=== PATIENT | male | born 1975 | race Caucasian/White ===

== ENCOUNTER 2023-09-03 19:05 | Emergency (ER) | payer BC ==
[2023-09-03] MEDS: Lidocaine 1% 5 ML VIAL INJECT ONE (19:50)
== END 2023-09-03 20:38 | disposition home or self-care (01) ==
LOC: DL.ED 19:05
DX: S61.217A Laceration without foreign body of left little finger without damage to nail, initial encounter (principal); Z88.8 Allergy status to other drugs, medicaments and biological substances; Z91.018 Allergy to other foods; Z91.048 Other nonmedicinal substance allergy status; W26.8XXA Contact with other sharp object(s), not elsewhere classified, initial encounter
CPT/HCPCS: 12001; 99282; J3490